=== PATIENT | female | born 1955 | race Caucasian/White ===

== ENCOUNTER 2016-12-17 14:45 | Observation (INO) | payer OTHER ==
[2016-12-17 14:56] VITALS: BMI 22.4
[2016-12-17] MEDS ORDERED: ASPIRIN 81 MG CHEWABLE TABLETS PO ONE (16:08)
[2016-12-17] MEDS ORDERED: ASPIRIN 81 MG CHEWABLE TABLETS ONE (16:20)
[2016-12-17] MEDS ORDERED: ASPIRIN 325 MG TABLET ONE (16:21)
[2016-12-17] MEDS ORDERED: SODIUM CHLORIDE 1,000 ML IV STA (16:23)
[2016-12-17 16:28] LABS: BASOPHIL 0.4 % (0-2.0); EOSINOPHIL 0.5 % (0-4.5); MCH 29.2 pg (25.7-33.7); MCHC 32.6 g/dl (32.0-36.0); MEAN CELL VOLUME 89.5 fl (80-96); MEAN PLT VOLUME 8.3 fl (7.5-11.1); NEUTROPHILS 72.1 % (42.8-82.8); PLATELET COUNT 187 K/MM3 (134-434); RDW 12.9 % (11.6-15.6); WHITE BLOOD COUNT 6.6 K/mm3 (4.0-10.0)
--- NOTE | 2016-12-17 16:28 | PDOC ---
History of Present Illness - General History Source: Patient Exam Limitations: No Limitations - History of Present Illness Initial Comments: 12/17/16 16:35 The patient is a 61-year-old female, with a significant past medical history of HTN, who presents to the ED for several days of intermittent chest pain and dizziness. Patient also reports experiencing shortness of breath when she feels this discomfort. The patients last stress test was done a couple of years ago. The patient reports diaphoresis. The patient denies having any other symptoms. <Eugenia Chong - Last Filed: 12/17/16 16:35> - General History Source: Patient Exam Limitations: No Limitations <Luis A Ayon - Last Filed: 12/17/16 17:40> - General Chief Complaint: Chest Pain Stated Complaint: CHEST PAIN/DIZZINESS Time Seen by Provider: 12/17/16 15:13 Past History <Eugenia Chong - Last Filed: 12/17/16 16:35> - Past Medical History Diabetes: Yes HTN: Yes Hypercholesterolemia: Yes - Immunization History Immunization Up to Date: Yes - Psycho/Social/Smoking Cessation Hx Suicidal Ideation: No Smoking History: Never smoked Have you smoked in the past 12 months: No Information on smoking cessation initiated: No Hx Alcohol Use: No Drug/Substance Use Hx: No Substance Use Type: None <Luis A Ayon - Last Filed: 12/17/16 17:40> - Past Medical History Allergies/Adverse Reactions: Allergies Allergy/AdvReac Type Severity Reaction Status Date / Time Penicillins Allergy Mild rash Verified 12/17/16 14:51 Home Medications: Ambulatory Orders Atenolol/Chlorthalidone [Atenolol-Chlorthalidone 50-25] 1 each PO DAILY Metformin HCl [Glucophage -] 500 mg PO DAILY 12/17/16 Rosuvastatin Calcium [Crestor] 10 mg PO DAILY 12/17/16 Review of Systems - Review of Systems Able to Perform ROS?: Yes Comments:: 12/17/16 16:36 GENERAL/CONSTITUTIONAL: No fever or chills. No weakness. +diaphoresis HEAD, EYES, EARS, NOSE AND THROAT: No change in vision. No ear pain or discharge. No sore throat. CARDIOVASCULAR: chest pain. +chest discomfort, shortness of breath RESPIRATORY: No cough, wheezing, or hemoptysis. SKIN: No rash GASTROINTESTINAL: No nausea, vomiting, diarrhea or constipation. GENITOURINARY: No dysuria, frequency, or change in urination. MUSCULOSKELETAL: No joint or muscle swelling or pain. No neck or back pain. NEUROLOGIC: No headache, vertigo, loss of consciousness, or change in strength/ sensation. ENDOCRINE: No increased thirst. No abnormal weight change. HEMATOLOGIC/LYMPHATIC: No anemia, easy bleeding, or history of blood clots. ALLERGIC/IMMUNOLOGIC: No hives or skin allergy. <CastilloEugenia - Last Filed: 12/17/16 16:35> *Physical Exam - Vital Signs Last Vital Signs Temp Pulse Resp BP Pulse Ox 98.1 F 69 19 170/76 99 12/17/16 14:52 12/17/16 14:52 12/17/16 14:52 12/17/16 14:52 12/17/16 14:52 - Physical Exam Comments: 12/17/16 16:37 GENERAL: Awake, alert, and fully oriented, in no acute distress HEAD: No signs of trauma ENT: Auricles normal inspection, hearing grossly normal, nares patent, oropharynx clear EYES: PERRLA, EOMI, sclera anicteric, conjunctiva clear without exudates. Moist mucosa. NECK: Normal ROM, supple, no lymphadenopathy, JVD, or masses LUNGS: Breath sounds equal, clear to auscultation bilaterally. No wheezes, and no crackles HEART: Regular rate and rhythm, normal S1 and S2, no murmurs, rubs or gallops ABDOMEN: Soft, nontender, normoactive bowel sounds. No guarding, no rebound. No masses EXTREMITIES: Normal range of motion, no edema. No clubbing or cyanosis. No cords, erythema, or tenderness NEUROLOGICAL: Cranial nerves II through XII grossly intact. Normal speech, normal gait SKIN: Warm, Dry, normal turgor, no rashes or lesions noted <CastilloEugenia - Last Filed: 12/17/16 16:35> - Vital Signs Last Vital Signs Temp Pulse Resp BP Pulse Ox 98.1 F 69 19 170/76 99 12/17/16 14:52 12/17/16 14:52 12/17/16 14:52 12/17/16 14:52 12/17/16 14:52 <Luis A Ayon - Last Filed: 12/17/16 17:40> Heart Score/ECG Review - History History: Moderately suspicious - Electrocardiogram EKG: Non specific repolarization disturbance - Age Age: 45-65 - Risk Factors Risk Factors Heart Score: Yes Hx Hypertension Based on the list above the patient has:: 1-2 risk factors - Troponin Troponin: </= normal limit - Score Heart Score - Total: 4 #1 ECG reviewed & interpreted by me at: 15:00 12/17/16 16:26 NSR 65, Q wave V1- V2, TWI III, avF, V3, T wave flat V, no std/vero, QTC 420 msec <Luis A Ayon - Last Filed: 12/17/16 17:40> ED Treatment Course - LABORATORY CBC & Chemistry Diagram: 12/17/16 16:15 12/17/16 16:15 - ADDITIONAL ORDERS Additional order review: 12/17/16 16:15 RBC 4.81 MCV 89.5 MCHC 32.6 RDW 12.9 MPV 8.3 Neutrophils % 72.1 Lymphocytes % 21.3 Monocytes % 5.7 Eosinophils % 0.5 Basophils % 0.4 - Medications Given in the ED: ED Medications Discontinued Medications Generic Name Dose Route Start Last Admin Trade Name Freq PRN Reason Stop Dose Admin Aspirin 324 mg 12/17/16 16:08 12/17/16 16:11 Asa - PO 12/17/16 16:09 324 mg ONCE ONE Administration <Eugenia Chong - Last Filed: 12/17/16 16:35> - LABORATORY CBC & Chemistry Diagram: 12/17/16 16:15 12/17/16 16:15 - RADIOLOGY Radiology Studies Ordered: Category Date Time Status CHEST PA & LAT [RAD] Stat Radiology 12/17/16 16:08 Ordered - Medications Given in the ED: ED Medications Discontinued Medications Generic Name Dose Route Start Last Admin Trade Name Freq PRN Reason Stop Dose Admin Aspirin 324 mg 12/17/16 16:08 12/17/16 16:11 Asa - PO 12/17/16 16:09 324 mg ONCE ONE Administration <Luis A Ayon - Last Filed: 12/17/16 17:40> Medical Decision Making - Medical Decision Making 12/17/16 16:27 A portion of this note was documented by scribe services under my direction. I have reviewed the details of the note, within reason, and agree with the documentation with the following case summary and management plan written by me. Patient treated in the ED. Nursing notes are reviewed and incorporated into the medical decision-making. Vital signs reviewed. Peripheral IV access obtained by the nurse, laboratory studies are drawn and sent, reviewed and interpreted by myself. Vital Signs Temp Pulse Resp BP Pulse Ox 98.1 F 69 19 170/76 99 12/17/16 14:52 12/17/16 14:52 12/17/16 14:52 12/17/16 14:52 12/17/16 14:52 61-year-old female with history of hypertension presents to the emergency department for intermittent chest pain and dizziness for several days. The patient has been endorsing intermittent episodes of chest discomfort sometimes occasionally associated shortness of breath. And occasionally symptoms with sweating. No nausea no vomiting. Last stress test multiple years ago. Pt appeared uncomfortable and with chest pain and discomfort. Given these circumstances, and that Dr. Schulz was already on site and present in the ED , case was discussed with him. Must rule out myocardial infarction versus acute coronary syndrome. We'll need troponin, chest x-ray, labs. Aspirin, IV fluids and reassess. At this time, Dr. Schulz agrees with my plan for admission and for further cardiac workup. 12/17/16 17:39 CBC, BMP 12/17/16 16:15 12/17/16 16:15 CMP Sodium 141 mmol/L (136-145) 12/17/16 16:15 Potassium 3.8 mmol/L (3.5-5.1) 12/17/16 16:15 Chloride 100 mmol/L (98-107) 12/17/16 16:15 Carbon Dioxide 34 mmol/L (21-32) H 12/17/16 16:15 Anion Gap 7 (8-16) L 12/17/16 16:15 BUN 16 mg/dL (7-18) 12/17/16 16:15 Creatinine 0.7 mg/dL (0.55-1.02) 12/17/16 16:15 Creat Clearance w eGFR > 60 (>60) 12/17/16 16:15 Random Glucose 105 mg/dL (74-106) 12/17/16 16:15 Calcium 9.3 mg/dL (8.5-10.1) 12/17/16 16:15 Total Bilirubin 0.4 mg/dL (0.2-1.0) 12/17/16 16:15 AST 18 U/L (15-37) 12/17/16 16:15 ALT 19 U/L (12-78) 12/17/16 16:15 Alkaline Phosphatase 89 U/L (45-117) 12/17/16 16:15 Creatine Kinase 82 IU/L (26-192) 12/17/16 16:15 Troponin I < 0.02 ng/ml (0.00-0.05) 12/17/16 16:15 Total Protein 7.7 g/dl (6.4-8.2) 12/17/16 16:15 Albumin 3.8 g/dl (3.4-5.0) 12/17/16 16:15 Lipase 147 U/L (73-393) 12/17/16 16:15 Trop negative. Case discussed with Dr. Whitfield, who accepts patient for telemetry observation. <Luis A Ayon - Last Filed: 12/17/16 17:40> *DC/Admit/Observation/Transfer - Attestations Scribe Attestion: 12/17/16 16:37 Documentation prepared by Eugenia Chong, acting as biomedical photographer for Luis A Ayon MD. <Eugenia Chong - Last Filed: 12/17/16 16:35> - Discharge Dispostion Admit: Yes <Luis A Ayon - Last Filed: 12/17/16 17:40> Diagnosis at time of Disposition: Chest pain Qualifiers: Chest pain type: unspecified Qualified Code(s): R07.9 - Chest pain, unspecified - Discharge Dispostion Condition at time of disposition: Stable - Referrals Referrals: Lonnie Hawley [Primary Care Provider] -
[2016-12-17 16:54] LABS: ALBUMIN 3.8 g/dl (3.4-5.0); ANION GAP 7 (8-16); BILIRUBIN,TOTAL 0.4 mg/dL (0.2-1.0); CALCIUM 9.3 mg/dL (8.5-10.1); CO2 34 mmol/L (21-32); CREATININE 0.7 mg/dL (0.55-1.02); GLUCOSE,RANDOM 105 mg/dL (74-106); SGOT/AST 18 U/L (15-37); SGPT/ALT 19 U/L (12-78); TOT PROT 7.7 g/dl (6.4-8.2)
[2016-12-17 16:57] LABS: ALK PHOS 89 U/L (45-117); TROPONIN I < 0.02 ng/ml (0.00-0.05)
[2016-12-17] MEDS ORDERED: ACETAMINOPHEN 325 MG TABLET (FP) PO PRN (17:41)
--- NOTE | 2016-12-17 18:04 | HP ---
CHIEF COMPLAINT: Chest pain PCP: Non-staff physician [employer] Dr. Schulz HISTORY OF PRESENT ILLNESS: 61 yo [place] female with h/o anxiety, HTN, HLD, NIDDM brought in by because of chest pain. Patient recalls that she's been having fatigue and vague chest pressure/pain for a week both at rest and at work. What prompted her to come to the ED is new symptoms of headache, nausea and vomiting with increased chest pressure today. 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 Suddenly she felt "bad" and the same chest pressure with severe headache. She said the chest pressure/vague pain usually resolved with xanax but not this time. The pressure/vague pain is substernal, travels to L arm and hand, pressure like, not reproducible by palpation, lasted 10 mins, not associated with position or exertion. Denies shortness of breath, palpitation, dizziness, diaphoresis, fever, chills, vision change. ER course was notable for: (1) Received ASA 325mg x 1 (2) EKG shows possible LAD, septal infarct, anterior ischemia Recent Travel: Denies PAST MEDICAL HISTORY: As above PAST SURGICAL HISTORY: None Social History: Smoking: Never Alcohol: Denies Drugs: Never Family History: Parents of old age in their 90s Allergies Penicillins Allergy (Mild, Verified 12/17/16 14:51) rash onset approx 2001 HOME MEDICATIONS: Home Medications Medication Instructions Recorded Atenolol/Chlorthalidone 1 each PO DAILY 12/17/16 [Atenolol-Chlorthalidone 50-25] Metformin HCl [Glucophage -] 500 mg PO DAILY 12/17/16 Rosuvastatin Calcium [Crestor] 10 mg PO DAILY 12/17/16 REVIEW OF SYSTEMS CONSTITUTIONAL: generalized weakness Absent: fever, chills, diaphoresis, , malaise, loss of appetite, weight change HEENT: Absent: rhinorrhea, nasal congestion, throat pain, throat swelling, difficulty swallowing, mouth swelling, ear pain, eye pain, visual changes CARDIOVASCULAR: chest pain Absent: , syncope, palpitations, irregular heart rate, lightheadedness, peripheral edema RESPIRATORY: Absent: cough, shortness of breath, dyspnea with exertion, orthopnea, wheezing, stridor, hemoptysis GASTROINTESTINAL: Absent: abdominal pain, abdominal distension, nausea, vomiting, diarrhea, constipation, melena, hematochezia GENITOURINARY: Absent: dysuria, frequency, urgency, hesitancy, hematuria, flank pain, genital pain MUSCULOSKELETAL: back pain, Absent: myalgia, arthralgia, joint swelling, neck pain SKIN: Absent: rash, itching, pallor HEMATOLOGIC/IMMUNOLOGIC: Absent: easy bleeding, easy bruising, lymphadenopathy, frequent infections ENDOCRINE: Absent: unexplained weight gain, unexplained weight loss, heat intolerance, cold intolerance NEUROLOGIC: headache, Absent: focal weakness or paresthesias, dizziness, unsteady gait, seizure, mental status changes, bladder or bowel incontinence PSYCHIATRIC: Absent: anxiety, depression, suicidal or homicidal ideation, hallucinations. PHYSICAL EXAMINATION Last Vital Signs Temp Pulse Resp BP Pulse Ox 98.1 F 69 19 170/76 99 12/17/16 14:52 12/17/16 14:52 12/17/16 14:52 12/17/16 14:52 12/17/16 14:52 GENERAL: AAO x 3, in no cardiopulmonary distress HEAD: Normal with no signs of trauma. EYES:PERRLA, sclera anicteric, conjunctiva clear. ENT: oropharynx clear without exudates. Moist mucous membranes. NECK: No bruits or JVD LUNGS: CTAB HEART: RRR, normal S1 and S2 without murmur, rub or gallop. ABDOMEN: Soft, nontender, not distended, normoactive bowel sounds, no guarding, no rebound, no masses. MUSCULOSKELETAL: Normal range of motion at all joints. No bony deformities or tenderness. No CVA tenderness. EXTREMITIES: 2+ pulses, warm, well-perfused. No calf tenderness. No peripheral edema. NEUROLOGICAL: Cranial nerves II-XII intact. Normal speech. PSYCHIATRIC: Cooperative. Good eye contact. Appropriate mood and affect. SKIN: Warm, dry, normal turgor, no rashes or lesions noted, normal capillary refill. CBCD WBC 6.6 K/mm3 (4.0-10.0) 12/17/16 16:15 RBC 4.81 M/mm3 (3.60-5.2) 12/17/16 16:15 Hgb 14.0 GM/dL (10.7-15.3) 12/17/16 16:15 Hct 43.0 % (32.4-45.2) 12/17/16 16:15 MCV 89.5 fl (80-96) 12/17/16 16:15 MCHC 32.6 g/dl (32.0-36.0) 12/17/16 16:15 RDW 12.9 % (11.6-15.6) 12/17/16 16:15 Plt Count 187 K/MM3 (134-434) 12/17/16 16:15 MPV 8.3 fl (7.5-11.1) 12/17/16 16:15 CMP Sodium 141 mmol/L (136-145) 12/17/16 16:15 Potassium 3.8 mmol/L (3.5-5.1) 12/17/16 16:15 Chloride 100 mmol/L (98-107) 12/17/16 16:15 Carbon Dioxide 34 mmol/L (21-32) H 12/17/16 16:15 Anion Gap 7 (8-16) L 12/17/16 16:15 BUN 16 mg/dL (7-18) 12/17/16 16:15 Creatinine 0.7 mg/dL (0.55-1.02) 12/17/16 16:15 Creat Clearance w eGFR > 60 (>60) 12/17/16 16:15 Calcium 9.3 mg/dL (8.5-10.1) 12/17/16 16:15 Total Bilirubin 0.4 mg/dL (0.2-1.0) 12/17/16 16:15 AST 18 U/L (15-37) 12/17/16 16:15 ALT 19 U/L (12-78) 12/17/16 16:15 Alkaline Phosphatase 89 U/L (45-117) 12/17/16 16:15 Total Protein 7.7 g/dl (6.4-8.2) 12/17/16 16:15 Albumin 3.8 g/dl (3.4-5.0) 12/17/16 16:15 IMAGING EKG on 12/17: possible LAD, septal infarct, anterior ischemia ASSESSMENT/PLAN: 61 yo [place] female with h/o anxiety, HTN, HLD, NIDDM admitted to observation for chest pain. Atypical chest pain, r/o ACS - Heart score = 5 - Trop -ve x 1, cont to trend - Cont. asa and crestor - ECHO - Cardiology consult HTN - Cont. atenolol+chlorthalidone HLD - Cont. crestor NIDDM - GBM and novolog sliding scale FEN - no IVF indicated - Normal lytes - DM diet Prophylaxis - DVT: SCDs - GI: not indicated Dispo - Observation - Awaiting cardiology consult Visit type - Emergency Visit Emergency Visit: Yes ED Registration Date: 12/17/16 Care time: The patient presented to the Emergency Department on the above date and was hospitalized for further evaluation of their emergent condition. - New Patient This patient is new to me today: Yes Date on this admission: 12/17/16 - Critical Care Critical Care patient: No
[2016-12-17] MEDS ORDERED: ACETAMINOPHEN 325 MG TABLET (FP) PO ONE (18:26)
[2016-12-17] MEDS ORDERED: PATIENT'S OWN MEDICATION (NON-FORMULARY) (Atenolol/Chlorthalidone [Atenolol-Chlorthalidone PO SCH (18:30)
[2016-12-17] MEDS ORDERED: ACETAMINOPHEN 325 MG TABLET (FP) ONE (19:04)
--- NOTE | 2016-12-17 19:31 | PN ---
Teaching Attending Note Name of Resident: Naresh Cain ATTENDING PHYSICIAN STATEMENT I saw and evaluated the patient. I reviewed the resident's note and discussed the case with the resident. I agree with the resident's findings and plan as documented. SUBJECTIVE: This is a 61-year-old woman with a history of HTN, hyperlipidemia, type 2 DM, anxiety who comes to the ER complaining of chest pain which she has been experiencing on and off for the past week. She describes it at substernal pressure radiating to her left arm. She has occasional shortness of breath. She denies fever, chills, cough, palpitations, dizziness, diaphoresis. Today the chest pain was more severe and she had nausea so she came to the ER. OBJECTIVE: Vital Signs Period Temp Pulse Resp BP Sys/Holliday Pulse Ox Last 24 Hr 98.1 F 69 19 170/76 99 HEART: S1S2, RRR LUNGS: Clear ABDOMEN: Soft, non-tender, non-distended, normal BS EXTREMITIES: No edema ASSESSMENT AND PLAN: This is a 61-year-old woman with a history of HTN, hyperlipidemia, type 2 DM, anxiety who presented to the ER with chest pain associated with nausea. 1. Chest pain - Observe on telemetry - Serial troponins - Echocardiogram - Continue aspirin, Atenolol, Crestor 2. Hypertension - Continue Atenolol, Chlorthalidone 3. Hyperlipidemia - Continue Crestor 4. Type 2 diabetes mellitus - Hold Metformin - Fingersticks with Novolog sliding scale
[2016-12-17] MEDS ORDERED: ATENOLOL 25 MG TABLET (FP) ONE (20:29)
[2016-12-17] MEDS: ROSUVASTATIN CA 10 MG TABLET (FP) PO SCH (20:52)
[2016-12-17] MEDS: CHLORTHALIDONE 25 MG TABLET PO SCH (20:52)
[2016-12-17] MEDS: ATENOLOL 50 MG TABLET (FP) PO SCH (20:53)
[2016-12-17] MEDS: INSULIN SLIDING SCALE (NOVOLOG) 1 VIAL SQ SCH (22:26)
[2016-12-17 23:05] LABS: TROPONIN I < 0.02 ng/ml (0.00-0.05)
[2016-12-18] MEDS: INSULIN SLIDING SCALE (NOVOLOG) 1 VIAL SQ SCH ×4 (06:41→22:09)
[2016-12-18 08:42] LABS: TROPONIN I < 0.02 ng/ml (0.00-0.05)
--- NOTE | 2016-12-18 10:11 | CON.CARD ---
Consult Consult Specialty:: cardiology Reason for Consultation:: chest pain; multiple cardiac risks; EKG changes - History of Present Illness History of Present Illness: The patient is a 61-year-old female (romaine Tim), with a significant past medical history of HTN,DM, hyperlipidemia,anxiety/panic, who presents to the ED for several days of intermittent chest pain and dizziness. Patient also reports experiencing shortness of breath when she feels this discomfort. The patients last stress test was done a couple of years ago. She has had several episodes of moderate chest pressure (diffuse) with diaphoresis since last Monday; the episodes sometimes extend to the left arm, last 5-10 aminutes, and occur both at rest and with exertion (e.g. cooking, walking). The patient reports diaphoresis. The patient denies having any other symptoms. - History Source History Provided By: Patient, Medical Record Limitations to Obtaining History: No Limitations - Past Medical History Cardio/Vascular: Yes: HTN, Hyperlipdemia Reproductive: Yes: Postmenopausal ...: No - Alcohol/Substance Use Hx Alcohol Use: No - Smoking History Smoking history: Never smoked Have you smoked in the past 12 months: No Home Medications - Allergies Allergies/Adverse Reactions: Allergies Allergy/AdvReac Type Severity Reaction Status Date / Time Penicillins Allergy Mild rash Verified 12/17/16 14:51 - Home Medications Home Medications: Ambulatory Orders Atenolol/Chlorthalidone [Atenolol-Chlorthalidone 50-25] 1 each PO DAILY Metformin HCl [Glucophage -] 500 mg PO DAILY 12/17/16 Rosuvastatin Calcium [Crestor] 10 mg PO DAILY 12/17/16 Vital Signs: Vital Signs Temperature 98.6 F 12/18/16 07:35 Pulse Rate 55 L 12/18/16 07:35 Respiratory Rate 14 12/18/16 07:35 Blood Pressure 141/74 12/18/16 07:35 O2 Sat by Pulse Oximetry (%) 97 12/18/16 07:35 - Other Data Labs, Other Data: Troponin, BNP 12/17/16 12/18/16 22:22 06:00 Troponin I < 0.02 < 0.02 Troponin, BNP 12/17/16 12/18/16 22:22 06:00 Troponin I < 0.02 < 0.02 Problem List - Problems (1) Chest pain Assessment/Plan: NSR: T wave inversions anteriorly. F/u records from PMDs office, and serially. TNI < 0.02; f/u serially. On atenolol. ASA. Continue rosuvastatrin; f/u lipids. TSH. ECHO for lLVEF, wall motion. Stress treadmil MIBI if TNIs remain negative.for ischemia/injury. Code(s): R07.9 - CHEST PAIN, UNSPECIFIED Qualifiers: Chest pain type: unspecified Qualified Code(s): R07.9 - Chest pain, unspecified (2) EKG abnormalities Code(s): R94.31 - ABNORMAL ELECTROCARDIOGRAM [ECG] [EKG] (3) HTN (hypertension) Code(s): I10 - ESSENTIAL (PRIMARY) HYPERTENSION (4) Diabetes Assessment/Plan: Pt is on metformin. Start lisinopril 2.5 mg dailyh (HTN; DM). Code(s): E11.9 - TYPE 2 DIABETES MELLITUS WITHOUT COMPLICATIONS
[2016-12-18] MEDS: ATENOLOL 50 MG TABLET (FP) PO SCH (10:37)
[2016-12-18] MEDS: ROSUVASTATIN CA 10 MG TABLET (FP) PO SCH (10:37)
[2016-12-18] MEDS: CHLORTHALIDONE 25 MG TABLET PO SCH (10:37)
[2016-12-18] MEDS: ASPIRIN COATED 81 MG TABLET.EC PO SCH (10:38)
--- NOTE | 2016-12-18 11:45 | PN ---
Progress Note, Physician Chief Complaint: Pt denies further chest pain overnight; eager to go home. History of Present Illness: The patient is a 61-year-old female (romaine Tim), with a significant past medical history of HTN,DM, hyperlipidemia,anxiety/panic, who presents to the ED for several days of intermittent chest pain and dizziness. Patient also reports experiencing shortness of breath when she feels this discomfort. The patients last stress test was done a couple of years ago. She has had several episodes of moderate chest pressure (diffuse) with diaphoresis since last Monday; the episodes sometimes extend to the left arm, last 5-10 aminutes, and occur both at rest and with exertion (e.g. cooking, walking). The patient reports diaphoresis. The patient denies having any other symptoms. - Current Medication List Current Medications: Active Medications Acetaminophen (Tylenol -) 650 mg PO Q4H PRN PRN Reason: FEVER OR PAIN Aspirin (Ecotrin -) 81 mg PO DAILY [facility] Last Admin: 12/18/16 10:38 Dose: 81 mg Chlorthalidone (Hygroton -) 25 mg PO DAILY [facility] Last Admin: 12/18/16 10:37 Dose: 25 mg Insulin Aspart (Novolog Vial Sliding Scale -) 1 vial SQ ACHS [facility] PRN Reason: Protocol Last Admin: 12/18/16 06:41 Dose: Not Given Lisinopril (Prinivil) 2.5 mg PO DAILY [facility] Rosuvastatin Calcium (Crestor -) 10 mg PO DAILY [facility] Last Admin: 12/18/16 10:37 Dose: 10 mg - Objective Vital Signs: Vital Signs Temperature 98.6 F 12/18/16 07:35 Pulse Rate 55 L 12/18/16 07:35 Respiratory Rate 14 12/18/16 07:35 Blood Pressure 141/74 12/18/16 07:35 O2 Sat by Pulse Oximetry (%) 97 12/18/16 07:35 Constitutional: Yes: Anxious Eyes: Yes: WNL HENT: Yes: WNL Neck: Yes: WNL Cardiovascular: Yes: WNL Respiratory: Yes: WNL Gastrointestinal: Yes: Soft ...Rectal Exam: Yes: Deferred Genitourinary: Yes: WNL Breast(s): Yes: WNL Musculoskeletal: Yes: WNL Extremities: Yes: WNL Edema: No Peripheral Pulses WNL: Yes Integumentary: Yes: WNL Neurological: Yes: WNL ...Motor Strength: WNL Psychiatric: Yes: Other - ....Imaging Chest X-ray: Image Reviewed (no acute pathology) EKG: Image Reviewed (NSR; ?old septal infarct; T wave inversions V1-3; consider anterior ischemia.) Problem List - Problems (1) Chest pain Assessment/Plan: NSR: T wave inversions anteriorly. F/u records from PMDs office, and serially. TNI < 0.02 x 3. On atenolol (hold until after stress test). ASA. Continue rosuvastatrin; f/u lipids. Start lisinopril (HTN; DM). TSH. ECHO for LVEF, wall motion. Stress treadmill MIBI in am. Case discussed with pt's PMD, Dr. Melody Tran. Code(s): R07.9 - CHEST PAIN, UNSPECIFIED Qualifiers: Chest pain type: unspecified Qualified Code(s): R07.9 - Chest pain, unspecified (2) EKG abnormalities Assessment/Plan: EKG today: NSR; T wave inversions V1-V3. Code(s): R94.31 - ABNORMAL ELECTROCARDIOGRAM [ECG] [EKG] (3) HTN (hypertension) Code(s): I10 - ESSENTIAL (PRIMARY) HYPERTENSION (4) Diabetes Assessment/Plan: Pt is on metformin. Start lisinopril 2.5 mg dailyh (HTN; DM). Code(s): E11.9 - TYPE 2 DIABETES MELLITUS WITHOUT COMPLICATIONS (5) Anxiety disorder due to general medical condition with panic attack Assessment/Plan: on clonazepam prn; per pt and her PMD, pt is under much better control in the past few years. She requires use of medication only a few times a month for anxiety/panic. Code(s): F06.4 - ANXIETY DISORDER DUE TO KNOWN PHYSIOLOGICAL CONDITION F41.0 - PANIC DISORDER WITHOUT AGORAPHOBIA
[2016-12-18 12:05] LABS: CHOLESTEROL 132 mg/dL (50-200); LDL CHOLESTEROL (ONLY SJRH) 65 mg/dL (5-100)
--- NOTE | 2016-12-18 14:37 | PN ---
Physical Exam: SUBJECTIVE: Patient seen and examined OBJECTIVE: no episodes of chest pain overnight no acute events on telemetry Vital Signs Period Temp Pulse Resp BP Sys/Holliday Pulse Ox Last 24 Hr 98 F-98.6 F 55-62 14-18 131-166/65-75 97-100 GENERAL: The patient is awake, alert, and fully oriented, in no acute distress. HEAD: Normal with no signs of trauma. EYES: PERRL, extraocular movements intact, sclera anicteric, conjunctiva clear. No ptosis. ENT: Ears normal, nares patent, oropharynx clear without exudates, moist mucous membranes. NECK: Trachea midline, full range of motion, supple. LUNGS: Breath sounds equal, clear to auscultation bilaterally, no wheezes, no crackles, no accessory muscle use. HEART: Regular rate and rhythm, S1, S2 without murmur, rub or gallop. ABDOMEN: Soft, nontender, nondistended, normoactive bowel sounds, no guarding, no rebound, no hepatosplenomegaly, no masses. EXTREMITIES: 2+ pulses, warm, well-perfused, no edema. NEUROLOGICAL: Cranial nerves II through XII grossly intact. Normal speech, gait not observed. PSYCH: Normal mood, normal affect. Laboratory Results - last 24 hr 12/17/16 12/17/16 12/18/16 22:21 22:22 06:00 POC Glucometer 123.23474 Creatine Kinase 67 Troponin I < 0.02 < 0.02 Triglycerides 119 Cholesterol 132 Total LDL Cholesterol 65 HDL Cholesterol 59 Lipase 146 12/18/16 12/18/16 06:35 13:25 POC Glucometer 113.50882 127.79994 Creatine Kinase Troponin I Triglycerides Cholesterol Total LDL Cholesterol HDL Cholesterol Lipase Active Medications Generic Name Dose Route Start Last Admin Trade Name Freq PRN Reason Stop Dose Admin Acetaminophen 650 mg 12/17/16 17:41 Tylenol - PO Q4H PRN FEVER OR PAIN Aspirin 81 mg 12/18/16 10:00 12/18/16 10:38 Ecotrin - PO 81 mg DAILY [facility] Administration Chlorthalidone 25 mg 12/17/16 20:00 12/18/16 10:37 Hygroton - PO 25 mg DAILY [facility] Administration Insulin Aspart 1 vial 12/17/16 22:00 12/18/16 13:28 Novolog Vial Sliding Scale - SQ Not Given ACHS [facility] Protocol Lisinopril 2.5 mg 12/19/16 10:00 Prinivil PO DAILY [facility] Rosuvastatin Calcium 10 mg 12/17/16 18:30 12/18/16 10:37 Crestor - PO 10 mg DAILY [facility] Administration EKG T wave inversions anteriorly. ASSESSMENT/PLAN: 61 year old with multiple risk factors hospitalized for atypical chest pain. Enzymes are negative x 3 and ACS is ruled out . - C/W telemetry - ECHO - Treadmill stress in am - ASA - statins - c/w insulin SS Visit type - Emergency Visit Emergency Visit: Yes ED Registration Date: 12/17/16 Care time: The patient presented to the Emergency Department on the above date and was hospitalized for further evaluation of their emergent condition. - New Patient This patient is new to me today: Yes Date on this admission: 12/18/16 - Critical Care Critical Care patient: No - Discharge Referral Referred to [facility] No
--- NOTE | 2016-12-18 21:18 | EKG ---
Test Reason : Blood Pressure : / mmHG Vent. Rate : 065 BPM Atrial Rate : 065 BPM P-R Int : 184 ms QRS Dur : 088 ms QT Int : 404 ms P-R-T Axes : 021 009 -04 degrees QTc Int : 420 ms NORMAL SINUS RHYTHM POSSIBLE LEFT ATRIAL ENLARGEMENT SEPTAL INFARCT , AGE UNDETERMINED T WAVE ABNORMALITY, CONSIDER ANTERIOR ISCHEMIA ABNORMAL ECG NO PREVIOUS ECGS AVAILABLE Confirmed by NELSON DAVE MD ([id number]) on 12/18/2016 9:17:32 PM Referred By: Confirmed By:NELSON DAVE MD
[2016-12-19] MEDS: INSULIN SLIDING SCALE (NOVOLOG) 1 VIAL SQ SCH ×2 (06:17→11:22)
[2016-12-19] MEDS ORDERED: LISINOPRIL 5 MG TABLET (FP) PO SCH (10:00)
[2016-12-19] MEDS ORDERED: PT OWN MED DRAWER 7, Y5N ONE (12:14)
--- NOTE | 2016-12-19 12:30 | PN ---
Progress Note, Physician History of Present Illness: The patient is a 61-year-old female (romaine Tim), with a significant past medical history of HTN,DM, hyperlipidemia,anxiety/panic, who presents to the ED for several days of intermittent chest pain and dizziness. Patient also reports experiencing shortness of breath when she feels this discomfort. The patients last stress test was done a couple of years ago. She has had several episodes of moderate chest pressure (diffuse) with diaphoresis since last Monday; the episodes sometimes extend to the left arm, last 5-10 aminutes, and occur both at rest and with exertion (e.g. cooking, walking). - Current Medication List Current Medications: Active Medications Acetaminophen (Tylenol -) 650 mg PO Q4H PRN PRN Reason: FEVER OR PAIN Aspirin (Ecotrin -) 81 mg PO DAILY [facility] Last Admin: 12/18/16 10:38 Dose: 81 mg Chlorthalidone (Hygroton -) 25 mg PO DAILY [facility] Last Admin: 12/18/16 10:37 Dose: 25 mg Insulin Aspart (Novolog Vial Sliding Scale -) 1 vial SQ ACHS [facility] PRN Reason: Protocol Last Admin: 12/19/16 11:22 Dose: Not Given Lisinopril (Prinivil) 2.5 mg PO DAILY [facility] Rosuvastatin Calcium (Crestor -) 10 mg PO DAILY [facility] Last Admin: 12/18/16 10:37 Dose: 10 mg - Objective Vital Signs: Vital Signs Temperature 98.7 F 12/19/16 08:03 Pulse Rate 67 12/19/16 08:03 Respiratory Rate 18 12/19/16 08:03 Blood Pressure 137/80 12/19/16 08:03 O2 Sat by Pulse Oximetry (%) 99 12/19/16 09:00 Eyes: Yes: WNL, Conjunctiva Clear, EOM Intact HENT: Yes: WNL, Atraumatic, Normocephalic Neck: Yes: WNL, Supple, Trachea Midline Cardiovascular: Yes: WNL, Regular Rate and Rhythm Respiratory: Yes: WNL, Regular, CTA Bilaterally Gastrointestinal: Yes: WNL, Normal Bowel Sounds Genitourinary: Yes: WNL Musculoskeletal: Yes: WNL Extremities: Yes: WNL Edema: No Integumentary: Yes: WNL Neurological: Yes: WNL, Alert, Oriented ...Motor Strength: WNL Psychiatric: Yes: WNL Labs: Laboratory Tests 12/17/16 12/17/16 12/17/16 16:15 16:15 22:21 WBC 6.6 RBC 4.81 Hgb 14.0 Hct 43.0 MCV 89.5 MCHC 32.6 RDW 12.9 Plt Count 187 MPV 8.3 Neutrophils % 72.1 Lymphocytes % 21.3 Monocytes % 5.7 Eosinophils % 0.5 Basophils % 0.4 Sodium 141 Potassium 3.8 Chloride 100 Carbon Dioxide 34 H Anion Gap 7 L BUN 16 Creatinine 0.7 Creat Clearance w eGFR > 60 POC Glucometer 123.25509 Random Glucose 105 Calcium 9.3 Total Bilirubin 0.4 AST 18 ALT 19 Alkaline Phosphatase 89 Creatine Kinase 82 Troponin I < 0.02 Total Protein 7.7 Albumin 3.8 Triglycerides Cholesterol Total LDL Cholesterol HDL Cholesterol Lipase 147 12/17/16 12/18/16 12/18/16 22:22 06:00 06:35 WBC RBC Hgb Hct MCV MCHC RDW Plt Count MPV Neutrophils % Lymphocytes % Monocytes % Eosinophils % Basophils % Sodium Potassium Chloride Carbon Dioxide Anion Gap BUN Creatinine Creat Clearance w eGFR POC Glucometer 113.33835 Random Glucose Calcium Total Bilirubin AST ALT Alkaline Phosphatase Creatine Kinase 67 Troponin I < 0.02 < 0.02 Total Protein Albumin Triglycerides 119 Cholesterol 132 Total LDL Cholesterol 65 HDL Cholesterol 59 Lipase 146 12/18/16 12/18/16 12/18/16 13:25 17:17 22:08 WBC RBC Hgb Hct MCV MCHC RDW Plt Count MPV Neutrophils % Lymphocytes % Monocytes % Eosinophils % Basophils % Sodium Potassium Chloride Carbon Dioxide Anion Gap BUN Creatinine Creat Clearance w eGFR POC Glucometer 127.22918 97 170 Random Glucose Calcium Total Bilirubin AST ALT Alkaline Phosphatase Creatine Kinase Troponin I Total Protein Albumin Triglycerides Cholesterol Total LDL Cholesterol HDL Cholesterol Lipase 12/19/16 12/19/16 05:10 11:08 WBC RBC Hgb Hct MCV MCHC RDW Plt Count MPV Neutrophils % Lymphocytes % Monocytes % Eosinophils % Basophils % Sodium Potassium Chloride Carbon Dioxide Anion Gap BUN Creatinine Creat Clearance w eGFR POC Glucometer 105 126 Random Glucose Calcium Total Bilirubin AST ALT Alkaline Phosphatase Creatine Kinase Troponin I Total Protein Albumin Triglycerides Cholesterol Total LDL Cholesterol HDL Cholesterol Lipase Assessment/Plan (1) Chest pain Assessment/Plan: NSR: T wave inversions anteriorly. F/u records from PMDs office, and serially. TNI < 0.02 x 3. On atenolol (hold until after stress test). ASA. Continue rosuvastatrin; f/u lipids. Start lisinopril (HTN; DM). TSH. ECHO for LVEF, wall motion. Stress treadmill MIBI in am. Case discussed with pt's PMD, Dr. Melody Tran. Code(s): R07.9 - CHEST PAIN, UNSPECIFIED Qualifiers: Chest pain type: unspecified Qualified Code(s): R07.9 - Chest pain, unspecified (2) EKG abnormalities Assessment/Plan: EKG today: NSR; T wave inversions V1-V3. Code(s): R94.31 - ABNORMAL ELECTROCARDIOGRAM [ECG] [EKG] (3) HTN (hypertension) Code(s): I10 - ESSENTIAL (PRIMARY) HYPERTENSION (4) Diabetes Assessment/Plan: Pt is on metformin. Start lisinopril 2.5 mg dailyh (HTN; DM). Code(s): E11.9 - TYPE 2 DIABETES MELLITUS WITHOUT COMPLICATIONS (5) Anxiety disorder due to general medical condition with panic attack Assessment/Plan: on clonazepam prn; per pt and her PMD, pt is under much better control in the past few years. She requires use of medication only a few times a month for anxiety/panic. Code(s): F06.4 - ANXIETY DISORDER DUE TO KNOWN PHYSIOLOGICAL CONDITION F41.0 - PANIC DISORDER WITHOUT AGORAPHOBIA
[2016-12-19] MEDS: ROSUVASTATIN CA 10 MG TABLET (FP) PO SCH (15:01)
[2016-12-19] MEDS: CHLORTHALIDONE 25 MG TABLET PO SCH (15:01)
[2016-12-19] MEDS: ASPIRIN COATED 81 MG TABLET.EC PO SCH (15:01)
[2016-12-19 15:26] VITALS: BP 127/72; PULSE 74; TEMP 99.1
--- NOTE | 2016-12-19 22:43 | DS ---
Physical Exam: SUBJECTIVE: No acute event reported by nurse or on awake overnight monitor. OBJECTIVE: Vital Signs Period Temp Pulse Resp BP Sys/Holliday Pulse Ox Last 24 Hr 98.1 F-99.1 F 57-74 18-20 127-146/72-82 98-99 PHYSICAL EXAM GENERAL: AAO x 3, in no cardiopulmonary distress HEAD: Normal with no signs of trauma. EYES:PERRLA, sclera anicteric, conjunctiva clear. ENT: oropharynx clear without exudates. Moist mucous membranes. NECK: No bruits or JVD LUNGS: CTAB HEART: RRR, normal S1 and S2 without murmur, rub or gallop. ABDOMEN: Soft, nontender, not distended, normoactive bowel sounds, no guarding, no rebound, no masses. MUSCULOSKELETAL: Normal range of motion at all joints. No bony deformities or tenderness. No CVA tenderness. EXTREMITIES: 2+ pulses, warm, well-perfused. No calf tenderness. No peripheral edema. NEUROLOGICAL: Cranial nerves II-XII intact. Normal speech. PSYCHIATRIC: Cooperative. Good eye contact. Appropriate mood and affect. SKIN: Warm, dry, normal turgor, no rashes or lesions noted, normal capillary refill. LABS Laboratory Results - last 24 hr 12/18/16 12/19/16 12/19/16 22:08 05:10 11:08 POC Glucometer 170 105 126 HOSPITAL COURSE: Date of Admission:12/17/16 61 yo [place] female with h/o anxiety, HTN, HLD, NIDDM admitted to observation for chest pain. She was admitted for atypical chest pain rule out ACS with a heart score of 5. Her trop was negative x 3 and ECHO was unremarkable. Stress test was also negative. She's now in stable conition to be d/c home starting on lisinopril 2.5mg daily. She's instructed to follow up with her PMD and boiler out within a week. Date of Discharge: 12/19/16 Minutes to complete discharge: 35 Discharge Summary Reason For Visit: CHEST PAIN Current Active Problems Anxiety disorder due to general medical condition with panic attack (Chronic) Diabetes (Chronic) HTN (hypertension) (Chronic) Condition: Stable - Instructions Diet, Activity, Other Instructions: Instruction for continuing care: You were admitted for chest pain. Your stress test and echocardiagram were negative. The chest pain was likely not from your heart but because you have diabetes, you will need to start taking baby dose of asprin to protect your heart and lisnopril 2.5 mg by mouth daily to protect your kidney and to keep your blood pressure low. You are given 2 weeks supply of the new medication and you need to follow up with your primary doctor and heart doctor within a week to obtain more supply. Resume usual activities and your old medications. Referrals: Lonnie Hawley [Primary Care Provider] - Naresh Schulz MD [Staff Physician] - Disposition: HOME - Home Medications Comprehensive Discharge Medication List: Ambulatory Orders Atenolol/Chlorthalidone [Atenolol-Chlorthalidone 50-25] 1 each PO DAILY Metformin HCl [Glucophage -] 500 mg PO DAILY 12/17/16 Rosuvastatin Calcium [Crestor] 10 mg PO DAILY 12/17/16 Aspirin Coated [Ecotrin -] 81 mg PO DAILY #14 tab 12/19/16 Lisinopril [Prinivil] 2.5 mg PO DAILY #14 tablet 12/19/16 This patient is new to me today: No Emergency Visit: No Critical Care patient: No - Discharge Referral Referred to [facility] No
--- NOTE | 2016-12-22 11:19 | EKG ---
Test Reason : Blood Pressure : / mmHG Vent. Rate : 056 BPM Atrial Rate : 056 BPM P-R Int : 204 ms QRS Dur : 086 ms QT Int : 436 ms P-R-T Axes : 033 029 018 degrees QTc Int : 420 ms SINUS BRADYCARDIA POSSIBLE LEFT ATRIAL ENLARGEMENT SEPTAL INFARCT (CITED ON OR BEFORE 17-DEC-2016) T WAVE ABNORMALITY, CONSIDER ANTERIOR ISCHEMIA ABNORMAL ECG WHEN COMPARED WITH ECG OF 17-DEC-2016 15:00, QUESTIONABLE CHANGE IN INITIAL FORCES OF SEPTAL LEADS T WAVE INVERSION LESS EVIDENT IN ANTERIOR LEADS Confirmed by NOEMI NORRIS MD ([id number]) on 12/22/2016 11:18:53 AM Referred By: Confirmed By:NOEMI NORRIS MD
== END 2016-12-19 17:19 | disposition home or self-care (01) ==
LOC: JER 14:45 → UNDOADMOB 17:45 → JERBED 17:45 → J4W 12-18 15:27
PROVIDERS: ADMIT Internal Medicine; ATTEND Internal Medicine
PROC: 3E0337Z Introduction of Electrolytic and Water Balance Substance into Peripheral Vein, Percutaneous Approach (ICD-10-PCS; principal; 2016-12-17)
PROC: 3E013VG Introduction of Insulin into Subcutaneous Tissue, Percutaneous Approach (ICD-10-PCS; 2016-12-17)
DX: R07.9 Chest pain, unspecified (principal); I10 Essential (primary) hypertension; E11.9 Type 2 diabetes mellitus without complications; Z88.0 Allergy status to penicillin; Z79.84 Long term (current) use of oral hypoglycemic drugs; E78.5 Hyperlipidemia, unspecified; F41.0 Panic disorder [episodic paroxysmal anxiety]; R94.31 Abnormal electrocardiogram [ECG] [EKG]; F06.4 Anxiety disorder due to known physiological condition
CPT/HCPCS: 36415; 71020-TC; 78452-TC; 80053; 80061; 82550; 83690; 83721; 84484; 85025; 93005; 93010; 93017; 93306-TC; 99285-25; A9502; G0378